=== PATIENT | male | born 1980 ===

== ENCOUNTER 2018-12-20 01:28 | Emergency (ER) | payer SELFPAY ==
[~2018-12-20] VITALS: Ht 167.6 cm; Wt 79.4 kg
[2018-12-20] MEDS ORDERED: LIDOCAINE 1% INJ 20 ML 20 ML VIAL ONE (01:46)
--- NOTE | 2018-12-20 01:51 | ED Upper Extremity ---
General Chief Complaint: Laceration Stated Complaint: LACERATION ON LEFT HAND Nursing T[place] in his hand. pt has laceration to left palm and left pinky finger. pt unsure of last tdap shot. pulses intact throughout. no bleeding present. Nursing Sepsis Screen: No Definite Risk Source: patient Exam Limitations: no limitations History of Present Illness Date Seen by Provider: Dec 20, 2018 Time Seen by Provider: 01:41 Initial Comments Patient presents to ER by private conveyance from the [employer] where he was carrying a beer in the bathroom lost his balance fell onto his hands and broke a beer bottle slicing in his left hand and left pinky finger. He has never had a tetanus shot. No significant medical history. Does not take anything for the pain does not have significant pain. No loss of movement in his hand or fingers nor loss of sensation. Allergies and Home Medications Allergies Coded Allergies: No Known Drug Allergies (Unverified , 12/20/18) Patient Home Medication List Home Medication List Reviewed: Yes Review of Systems Constitutional: No chills, No diaphoresis EENTM: No ear discharge, No ear pain Respiratory: No cough, No short of breath Cardiovascular: No chest pain, No edema Gastrointestinal: No abdominal pain, No constipation, No diarrhea Genitourinary: No dysuria, No pain Past Mflguxo-Pyjoqh-Ssrlpu Hx Patient Social History Alcohol Use: Occasionally Uses Recreational Drug Use: No Smoking Status: Never a Smoker Recent Foreign Travel: No Contact w/Someone Who Travel: No Recent Infectious Disease Expo: No Recent Hopitalizations: No Physical Abuse: No Sexual Abuse: No Mistreated: No Fear: No Immunizations Up To Date Tetanus Booster (TDap): Unknown Seasonal Allergies Seasonal Allergies: No Past Medical History Surgeries: No Respiratory: No Cardiac: No Neurological: No Genitourinary: No Gastrointestinal: No Musculoskeletal: No Endocrine: No HEENT: No Cancer: No Psychosocial: No Integumentary: No Blood Disorders: No Physical Exam Vital Signs Vital Signs - First Documented 12/20/18 01:39 Temp 97.6 Pulse 68 Resp 18 B/P (MAP) 150/99 (116) Capillary Refill : Less Than 3 Seconds Height, Weight, BMI Height: 5'6.00" Weight: 175lbs. oz. 79.903178hk; BMI Method:Stated General Appearance: WD/WN, no apparent distress HEENT: PERRL/EOMI, pharynx normal Neck: full range of motion, normal inspection Cardiovascular: normal peripheral pulses, regular rate, rhythm Respiratory: no respiratory distress, no accessory muscle use Wrist: Yes normal inspection, Yes non-tender, Yes no evidence of injury, Yes normal ROM Hand: laceration (2.5 cm curvilinear laceration in the subcutaneous tissue of the home of the left hand. And a 1 cm superficial skin flap to the palmar side of the left hand fifth digit intermediate phalanges.) Procedures/Interventions Wound Location: Upper Extremities Other Wound Location Left palm Wound Length (cm): 3 Wound's Depth, Shape: linear, sub Q Wound Explored: no foreign body removed Irrigated w/ Saline (ccs): 100 Betadine Prep?: Yes Anesthesia: 1% Lidocaine Volume Anesthetic (ccs): 5 Wound Debrided: minimal Suture: Prolene Suture Size: 4-0 Number of Sutures: 5 Sterile Dressing Applied?: Yes Progress 5 simple interrupted sutures were placed closing a curvilinear 3 cm laceration on the palmar hand. No foreign body was found. Wound was thoroughly explored and cleaned and infiltrated with 1% lidocaine without epinephrine prior to suturing. Wound Location: Upper Extremities Other Wound Location Left, palmar, middle interphalangeal joint of the fifth digit. Wound Length (cm): 2 Wound's Depth, Shape: superficial, linear, flap, sub Q Wound Explored: no foreign body removed Irrigated w/ Saline (ccs): 50 Betadine Prep?: Yes Anesthesia: 1% Lidocaine Volume Anesthetic (ccs): 4 Wound Debrided: minimal Suture: Prolene Suture Size: 4-0 Other Closure Supply: Wound Adhesive Number of Sutures: 3 Progress Wound was thoroughly cleaned and digital block was placed as well as 1 cc of lidocaine placed correctly and the wound edges. When the patient was ascertained to be numb we then cleaned him with some sterile saline with chlorhexidine soap in it. He did not find any foreign body and the wound is shallow on the ulnar side and into the subcutaneous tissue on the radial side. 3 simple interrupted sutures were placed on the radial side and wound adhesive is used to glue the thin flap edge down on the ulnar side. Progress/Results/Core Measures Results/Orders My Orders Orders - MARGUERITE RUBIO Lidocaine 1% Inj 20 Ml (Xylocaine 1% Inj (12/20/18 01:46) Vital Signs/I&O 12/20/18 01:39 Temp 97.6 Pulse 68 Resp 18 B/P (MAP) 150/99 (116) Blood Pressure Mean: 116 Departure Impression Primary Impression: Laceration of hand Qualified Codes: S61.412A - Laceration without foreign body of left hand, initial encounter Additional Impression: Laceration of left little finger Qualified Codes: S61.217A - Laceration without foreign body of left little finger without damage to nail, initial encounter Disposition: HOME, SELF-CARE Condition: Improved Departure-Patient Inst. Decision time for Depature: 02:22 Referrals: NO,LOCAL PHYSICIAN (PCP) Primary Care Physician Patient Instructions: Laceration Repair With Stitches (DC) Add. Discharge Instructions: Take the Bactrim one tablet twice a day with food for the next 3 days to prevent infection. Keep the wounds clean with regular soap and water and came dry gauze dressings daily or as often as it becomes soiled. Do not submerse your hand. Return to the ER or go to your primary care doctor sutures removed in 10 days. All discharge instructions reviewed with patient and/or family. Voiced understanding. Scripts Sulfamethoxazole/Trimethoprim (Bactrim Ds Tablet) 1 Each Tablet 1 EACH PO BID for 3 Days, #6 TAB 0 Refills Prov: MARGUERITE RUBIO 12/20/18 Work/School Note: Work Release Form Date Seen in the Emergency Department: Dec 20, 2018 Return to Work: Dec 21, 2018 Restrictions: Need Release from Doctor Other Restrictions Listed Below: Do not submerse left hand until sutures are out on 12/30/18. MARGUERITE RUBIO Dec 20, 2018 01:51
[2018-12-20] MEDS ORDERED: SULF1TAB35 PO (02:24)
[2018-12-20] MEDS ORDERED: TETANUS,DIPTH,PERTUSS P/F (BOOSTRIX) 0.5 ML VIAL IM ONE (02:45)
[2018-12-20] MEDS ORDERED: LIDOCAINE 1% INJ 20 ML 20 ML VIAL INJ ONE (02:45)
[2018-12-20 02:54] VITALS: BP 150/99
== END 2018-12-20 02:53 | disposition home or self-care (01) ==
LOC: EDUNIT# 01:28 → ER 01:32
DX: S61.217A Laceration without foreign body of left little finger without damage to nail, initial encounter (principal); S61.412A Laceration without foreign body of left hand, initial encounter; W19.XXXA Unspecified fall, initial encounter; W25.XXXA Contact with sharp glass, initial encounter
CPT/HCPCS: 12011; 90715